=== PATIENT | female | born 1985 | race Caucasian/White ===

== ENCOUNTER → 2020-07-25 14:35 | Outpatient (REF) | payer BC, SELFPAY | LOC: ANHLAB 14:35 | PROVIDERS: Visit Provider Surgery Plastic and Reconstructive Surgery | DX: C43.72 Malignant melanoma of left lower limb, including hip (principal) | CPT/HCPCS: 88305; 88342 ==

== ENCOUNTER 2020-08-06 15:08 | Outpatient (CLI) | payer BC, SELFPAY ==
--- NOTE | ~2020-08-06 | XR_ITS ---
XR chest 2V DATE: 08/06/2020 16:12 INDICATION: Left lower extremity melanoma TECHNIQUE: PA and lateral views COMPARISON: None FINDINGS: Normal heart size. No hilar or mediastinal enlargement. No pulmonary infiltrate or consolid ation, pleural effusion or pulmonary vascular congestion or pneumothorax. Included skeletal structures are unremarkable. IMPRESSION: Negative Reviewed, dictated and finalized at location B. TRIMMER IMPRESSION: Negative
[2020-08-06 15:34] LABS: Basophils Percent Auto 0.4 % (0.2-1.2); Eosinophils Absolute Auto 0.1 K/mm3 (0-0.3); Eosinophils Percent Auto 1.4 % (0-4.4); Hemoglobin 14.4 g/dL (12.0-15.0); Immature Granulocyte Absolute 0.02 K/mm3 (0.00-0.031); Immature Granulocyte Percent A 0.2 % (0-0.5); Lymphocytes Absolute Auto 1.91 K/mm3 (0.9-3.2); Lymphocytes Percent Auto 21.1 % (18.3-44.2); Mean Corpuscular HGB Conc 34.3 g/dl (32-36); Mean Corpuscular Hemoglobin 31.4 pg (26-34); Mean Corpuscular Volume 91.7 fl (80-100); Mean Platelet Volume 9.9 fl (7.4-10.4); Monocytes Absolute Auto 0.6 K/mm3 (0.1-0.6); Monocytes Percent Auto 6.3 % (2.6-8.5); Neutrophils Absolute Auto 6.4 K/mm3 (1.3-6.7); Neutrophils Percent Auto 70.6 % (45.5-73.1); Platelet Count Result 251 k/mm3 (150-375); Red Blood Count 4.58 M/mm3 (4.2-5.4); Red Cell Distribution Width 11.8 % (11.5-14.5); White Blood Count 9.1 K/mm3 (4.5-10.0)
[2020-08-06 16:49] LABS: Alanine Aminotransferase 15 U/L (4-35); Albumin Level 4.5 g/dL (3.5-5.1); Alkaline Phosphatase 72 U/L (38-126); Anion Gap 10 mmol/L (8-16); Aspartate Amino Transferase 20 U/L (14-36); Bilirubin,Total 0.2 mg/dL (0.2-1.3); Blood Urea Nitrogen 15 mg/dL (7-17); Calcium 9.4 mg/dL (8.4-10.2); Carbon Dioxide 28 mmol/L (22-30); Chloride 101 mmol/L (98-107); Estimated Glomerular Filt Rate > 60; Glucose 115 mg/dL (65-105); Lactate Dehydrogenase 319 U/L (313-618); Potassium 4.7 mmol/L (3.4-5.0); Sodium 139 mmol/L (137-145)
== END 2020-08-06 15:09 | disposition home or self-care (01) ==
PROVIDERS: PCP Family Medicine; Visit Provider Internal Medicine Hematology & Oncology
DX: C43.72 Malignant melanoma of left lower limb, including hip (principal)
CPT/HCPCS: 36415; 71046; 80053; 83615; 85025

== ENCOUNTER 2021-12-12 09:28 | Outpatient (CLI) | payer BC, SELFPAY ==
--- NOTE | ~2021-12-12 | CT_ITS ---
EXAMINATION: CT abdomen pelvis w con DATE: 12/12/2021 09:59 INDICATION: Malignant melanoma of left lower extremity TECHNIQUE: Computed tomography (CT) of the abdomen and pelvis was performed with 100 CC Omnipaque 300 intravenous contrast. Automated exposure control and iterative reconstruction technique were employe d. Exam dose: 328.45 mGy-cm total exam DLP. COMPARISON: 08/2020 2 view chest FINDINGS: The lung bases are clear of infiltrate or consolidation or mass lesion. Normal heart size. No pericardial or pleural effusion. There is focal fatty infiltration of the medial segment of the left hepatic lobe adjacent to the liga mentum teres fissure. No hepatic, splenic, pancreatic, and adrenal or renal space-occupying mass lesi on is evident. There are 4 nonobstructing right renal calculi, ranging from punctate up to 2.9 mm approximate dimens ion. There are 5 left renal nonobstructing calculi, measuring up to 2.5 x 4 mm. No ureteral calculus or hydroureteronephrosis. The urinary bladder and uterus and adnexal areas are unremarkable, except for mild free fluid in the right adnexa and cul de sac. Normal caliber of the abdominal aorta. No intraperitoneal or retroperitoneal or pelvic mass lesion o r lymphadenopathy or ascites is noted otherwise. Small fat containing umbilical hernia. No suspicious osteolytic or osteoblastic lesions are noted. IMPRESSION: Bilateral nonobstructive nephrolithiasis No abdominal or pelvic mass lesions or lymphadenopathy are noted Reviewed, dictated and finalized at [facility]. Reviewed, dictated and finalized at location B.
== END 2021-12-12 09:29 | disposition home or self-care (01) ==
PROVIDERS: PCP Family Medicine; Visit Provider Internal Medicine Hematology & Oncology
DX: C43.72 Malignant melanoma of left lower limb, including hip (principal); N20.0 Calculus of kidney
CPT/HCPCS: 74177; Q9967